=== PATIENT | female | born 1945 | race Caucasian/White ===

== ENCOUNTER 2020-05-29 11:31 | Outpatient (RCR) | payer MEDICARE, BC, SELFPAY ==
[2020-05-29] MEDS: COVID-19 VACC, MRNA(PFIZER)/PF 30 MCG/0.3 ML SYRINGE IM (07:40)
[2020-06-19] MEDS: COVID-19 VACC, MRNA(PFIZER)/PF 30 MCG/0.3 ML SYRINGE IM (07:02)
== END 2020-05-29 23:59 ==
LOC: IMMUN 11:31
PROVIDERS: Visit Provider Family Medicine
DX: Z23 Encounter for immunization (principal)
CPT/HCPCS: 0001A; 0002A

== ENCOUNTER 2023-02-11 07:47 | Emergency (ER) | payer MEDICARE, BC, SELFPAY ==
[2023-02-11 07:48] VITALS: BP 144/82; PULSE 59; RESP 18; TEMP 36.4; O2SAT 100
--- NOTE | 2023-02-11 08:07 | EDS_ITS ---
HPI History of Present Illness Chief Complaint: Back Narrative Narrative: 77-year-old female presents with worsening back pain over the last week. She states that remotely, 40 years ago, she blew a disc and required surgery. This was at the level of L5. She also in the past and had problems with cervical disc bulging, and went to physical therapy and states the disc went back in. Over the last week she complains of SI joint and low back pain that radiates to her right leg, to the front of her right thigh. Her primary care physician has prescribed her gabapentin and Tylenol 3 times a day. She denies any red flag signs for cauda equina, no saddle anesthesia, no loss of bowel or bladder, no fevers or chills. She has an appointment with orthopedics on Tuesday, 3 days from now, but presents because of the worsening pain. She describes more of a burning pain in her right hip and right thigh and pain in her low back. She relates history that 2 years ago when she was taking care of her , she was having sciatic pain but was able to get through it. She started having sciatic pain again about a week ago. [facility] Medical History (Updated 02/11/23 @ 09:33 by Zach Lopez MD) HTN (hypertension) Hyperlipidemia Home Medications atorvastatin 40 mg tablet 40 mg PO .hs 02/11/23 [History Last Taken Unknown] ergocalciferol (vitamin D2) 1,250 mcg (50,000 unit) capsule 50,000 unit PO .COMPLEX 02/11/23 [History Last Taken Unknown] gabapentin 100 mg capsule 100 mg PO TID PRN pain (scale score 4-6) 02/11/23 [History Last Taken Unknown] magnesium 250 mg tablet 250 mg PO DAILY 02/11/23 [History Last Taken Unknown] metoprolol succinate 25 mg tablet,extended release 24 hr 25 mg PO BID 02/11/23 [History Last Taken Unknown] ramipril 10 mg capsule 10 mg PO BID 02/11/23 [History Last Taken Unknown] Allergy/AdvReac Type Severity Reaction Status Date / Time No Known Allergies Allergy Verified 02/11/23 07:48 Surgical History (Updated 02/11/23 @ 08:53 by Amelia Rodriguez) H/O: hysterectomy Social History Smoking Status: Never smoker ROS ROS ED ROS Narrative Constitutional: No fever, no chills. HEENT: No sore throat. No neck pain. No loss of vision. No rhinorrhea. Cardiovascular: No chest pain. No palpitations. No pedal edema. Respiratory: No cough, no shortness of breath. Abdominal: No abdominal pain. No nausea. No vomiting. Genitourinary: No dysuria. No hematuria. Musculoskeletal: No myalgias. No arthralgias. Positive low back pain with radiation to right hip and thigh. Burning pain. Neurologic: No headaches. No dizziness. No lightheadedness. Skin: No rash. No change in color. Psychiatric: No depression. No anxiety. EXAM Physical Exam Narrative Exam Narrative: Afebrile. Vital signs noted. HEENT: Normocephalic. Atraumatic. PERRL, EOMI. Neck soft and supple. No point tenderness or step off. Cardiovascular: Regular rate and rhythm. No murmurs, rubs, or gallops appreciated. Respiratory: No tachypnea. Lungs clear to auscultation bilaterally. Gastrointestinal: Abdomen soft, nontender, with normoactive bowel sounds. No rebound or guarding. Neurological: Awake. Alert. Nonfocal, nonlateralizing. Skin: No rash. Normal color. No pallor. Musculoskeletal: No pedal edema. Full range of motion extremities. Able to flex and extend right knee and right hip without difficulty. Neurovascular intact distally. Straight leg raising negative bilaterally. Mild tenderness to palpation lumbar spine but no step-off. Minimal tenderness to palpation in right sciatic notch and diffusely through her right SI joint. Const Vital Signs: 02/11/23 07:48 Temperature 97.6 F L Temperature Source Temporal Pulse Rate 59 L Respiratory Rate 18 Blood Pressure 144/82 H Blood Pressure Mean 102 Pulse Ox 100 Oxygen Delivery Method Room Air MDM MDM MDM Narrative Medical decision making narrative: I had a lengthy discussion with the patient and her daughter. I do not feel emergent MRI is indicated. However, I do feel that CT imaging of the back/lumbar spine would be beneficial. In the differential diagnosis is degenerative joint disease of the spine, spinal stenosis, sacroiliitis, and sciatica with back pain. I have low suspicion for cauda equina based on her history and physical examination. We also discussed analgesia and she states that she has intolerance to morphine because 40 years ago they administered it to her and all my organs shut down. I offered her either oxycodone or hydrocodone but she states she has never taken that and would like to wait until after imaging studies are performed. I reviewed the CT report of her lumbar spine and there are multilevel degenerative changes along with central and bilateral neural foraminal stenosis at L3-L4 and L4-L5 levels. She does have posterior bulging disks. At this point in time, I feel she be discharged to follow-up with her orthopedic child welfare specialist on Tuesday. I discussed analgesia with her and she declined narcotics and would like to continue her gabapentin 100 mg 3 times daily and Tylenol as well as she just started these yesterday. She was told that she can titrate up her gabapentin after a week. She should follow-up with her primary care physician as well. I do not feel she requires admission at this time. Disposition is discharged home in stable condition. History & Record Review Discussion w/independent historian: Patient and Family Additional record(s) reviewed:: No prior records Radiography Diagnostic Testing: Clinical Impression(s) from Imaging Studies Lumbar Spine CT 02/11/23 08:30 IMPRESSION: Multilevel degenerative changes, as described above. Central and bilateral neural foraminal stenosis at the L3-L4 and L4-L5 levels. Electronically Signed: Drew Renee MD at 8:49 EST , Discharge Plan Triage Chief Complaint: Back ED Provider: Zach Lopez Dx/Rx/DC Orders Clinical Impression: Sciatica of right side, Spinal stenosis, Multilevel degenerative joint disease of spine Instructions: ED Back Pain (Acute or Chronic), ED Sciatica Prescriptions: No Action atorvastatin 40 mg tablet 40 mg PO .hs gabapentin 100 mg capsule 100 mg PO TID PRN (Reason: pain (scale score 4-6)) metoprolol succinate 25 mg tablet extended release 24 hr 25 mg PO BID ergocalciferol (vitamin D2) 1,250 mcg (50,000 unit) capsule 50,000 unit PO .COMPLEX Rx Instructions: 50,000 units orally twice a month; ramipril 10 mg capsule 10 mg PO BID Patient Comments: TAKE 1 CAPSULE BY MOUTH TWICE A DAY magnesium 250 mg tablet 250 mg PO DAILY Primary Care Provider: SHEY LLOYD MD Referrals: Dillon Richards, [Med Staff - Active Staff] - Keep Yanni appointment NOT,DEFINED [Non-Staff] - Activity Restrictions/Additional Instructions: Continue your gabapentin and Tylenol as directed. Follow up with your Orthopaedic Credit Clerk as scheduled on Tuesday. Disposition Disposition: Home, Self Care
--- NOTE | 2023-02-11 08:30 | CT_ITS ---
STUDY: CT LUMBAR SPINE WITHOUT CONTRAST REASON FOR EXAM: Female, 77 years old. Sciatica, pain RADIATION DOSAGE (If Supplied By Facility): CTDIvol = ( 18.27 ) mGy, DLP = ( 658.92 ) mGycm TECHNIQUE: The patient was scanned in a multi detector CT scanner. High resolution transaxial imaging was performed. Images were obtained from L1 to S1 vertebral level. Sagittal and coronal images were reconstructed. Individualized dose optimization techniques were used for this CT. COMPARISON: None FINDINGS: There is straightening of the normal lumbar lordosis. There is no substantial scoliosis. Normal vertebrae of the lumbar spine. L1-2: Normal endplates. Normal disc height and morphology. Normal bilateral facet joints. Normal central canal and bilateral lateral recesses. Normal bilateral intervertebral neural foramina. L2-3: Mild degree diffuse posterior disc bulge. No significant stenosis is seen. L3-4: Diffuse posterior disc bulge. Facet joint osteoarthritis and hypertrophy. Hypertrophy of the ligamenta flava. Mild degree of central canal stenosis and moderate degree of bilateral neural foraminal stenosis. L4-5: Diffuse posterior disc bulge. Hypertrophy of the facet joints with hypertrophy of the ligamenta flava causing a mild degree of central canal stenosis and moderate degree of bilateral neural foraminal stenosis. L5-S1: Marked degree of disc space narrowing. Atherosclerotic plaque formation of the abdominal aorta. CT/Spine Lumbar without Contrast IMPRESSION: Multilevel degenerative changes, as described above. Central and bilateral neural foraminal stenosis at the L3-L4 and L4-L5 levels. Electronically Signed: Drew Renee MD at 8:49 EST ,
== END 2023-02-11 10:00 | disposition home or self-care (01) ==
PROVIDERS: Emergency Provider Emergency Medicine; Visit Provider Emergency Medicine
DX: M48.00 Spinal stenosis, site unspecified (principal); I10 Essential (primary) hypertension; M54.31 Sciatica, right side; E78.5 Hyperlipidemia, unspecified; Z79.899 Other long term (current) drug therapy; Z90.710 Acquired absence of both cervix and uterus; M51.36 Other intervertebral disc degeneration, lumbar region
CPT/HCPCS: 72131; 99282

== ENCOUNTER → 2023-03-11 | Outpatient (CLI) | payer MEDICARE, BC, SELFPAY ==
--- NOTE | 2023-03-11 06:32 | MRI_ITS ---
STUDY: MRI LUMBAR SPINE WITH AND WITHOUT CONTRAST REASON FOR EXAM: Female, 78 years old. Low back pain and right leg pain. TECHNIQUE: Standardized fat and water weighted pulse sequences were obtained in the sagittal and axial planes. 15 mL of IV Clariscan was administered for the contrast portion of the examination. COMPARISON: CT lumbar spine without contrast 02/01/2023. FINDINGS: T10-T11: (Sagittal only). Normal endplates. Normal disc height, hydration and morphology. No ventral extradural defect. Normal central canal and the included portions of the bilateral intervertebral neural foramina. T11-T12 and T12-L1: (Sagittal only). Normal endplates. Normal disc height, hydration and morphology. No ventral extradural defects. Normal central canal and bilateral intervertebral neural foramina. Normal lumbar lordosis. There is no substantial scoliosis. Normal conus medullaris that terminates at the mid L1 vertebral body level. L1-2: Normal endplates. Normal disc height, hydration and morphology. Normal bilateral facet joints. Normal central canal and bilateral lateral recesses. Normal bilateral intervertebral neural foramina. L2-3: Normal endplates. Normal disc height, hydration and morphology. Normal bilateral facet joints. Normal central canal and bilateral lateral recesses. Normal bilateral intervertebral neural foramina. L3-4: Normal endplates. Mild disc space height narrowing. Minimal ventral extradural defect due to posterior bulging annulus. Mild bilateral degenerative facet arthropathy. Mild dorsal epidural lipomatosis. Moderate central canal stenosis with an AP canal diameter 7 mm. Normal bilateral lateral recesses. Prominent right posterior foraminal disc extrusion (series 6 and 8, images 18; series 2 and 3, images 11). This is causing posterior displacement of the right L3 nerve. Normal left intervertebral neural foramen. L4-5: Normal endplates. Normal disc height, hydration and morphology. Normal bilateral facet joints. Normal central canal and bilateral lateral recesses. Normal bilateral intervertebral neural foramina. L5-S1: Minimal Modic type II degenerative vertebral marrow fat infiltration underneath the peripheral aspect of the vertebral endplates. Pronounced disc space height narrowing. Mild bilateral degenerative facet arthropathy. Normal central canal and bilateral lateral recesses. Normal bilateral intervertebral neural foramina. Normal visualized sacral ala. Normal visualized paraspinous soft tissue structures. Following IV contrast administration, there are no abnormally enhancing lesions intradurally and extradurally. MRI/Spine Lumbar W/WO Contrast IMPRESSION: 1. Prominent right L3-L4 posterior foraminal disc extrusion causing posterior displacement of the right L3 nerve and moderate central canal stenosis with an AP canal diameter of 7 mm. 2. No abnormal enhancing lesions intradurally and extradurally. Electronically Signed: Zach Morales MD at 16:01 EST ,
[2023-03-11 07:01] LABS: CREATININE FINGERSTICK < 1.0 mg/dL (0.55-1.02); EGFR FINGERSTICK > 60.0000 mL/min (>60)
--- NOTE | 2023-04-13 14:40 | PCM.PN.HOSP ---
Reason for Visit Reason for Visit: Back Pain Subjective Subjective Mrs. Petty is a 78-year-old white female who was admitted to [facility] on 04/13/2023 after undergoing an elective far lateral laminectomy at L3 and L4 on the right. She evidently had been having significant problems with radicular pain and associated numbness and tingling that had caused her leg to become weak. She had previous back surgery 20 years prior. She was rating her pain a 10 out of 10 and was unable to sit or lie on her left side and her symptoms made it difficult for her to walk. She had been undergoing conservative management with gabapentin extra strength Tylenol and had been using both ice and heat but was not getting any significant pain relief. She had no change in her bowel or bladder function neurologically it is documented that she had increased pain with flexion of the lumbar spine and she had decreased right Achilles reflex compared to the left and Babinski's were downgoing bilaterally. X-rays revealed degenerative disc disease and a CT scan showed foraminal stenosis MRI was performed and showed prominent L3-L4 posterior foraminal disc extrusion causing posterior displacement of the right L3 nerve and moderate canal stenosis with an AP canal diameter of 7 mm. Given these findings and her ongoing symptoms she was taken to the OR for a far lateral laminectomy at L3 and L4 on the right. We have been consulted postoperatively for medical management. She has a past medical history of vitamin D deficiency, hypertension, and hyperlipidemia. I evaluated her postoperatively on the medical floor after coming up from PACU. Assessment & Plan Assessment/Plan PLAN: Plan Lumbar radiculopathy secondary to L3-L4 disc protrusion -Postop day 0 far lateral laminectomy at L3-4 -Pain management per primary service -Recommend bowel regimen -PT/OT per primary service Hypertension -Continue home metoprolol -Continue home ramipril Hyperlipidemia -Continue home statin Vitamin D deficiency -Restart ergocalciferol at discharge Chronic pain -Continue home medications for pain per primary service DVT prophylaxis -Per primary service Capacity Legal Director Of Cardiac Cath Lab Reflex Medical hold order details:: IF a medical hold is selected below, a suggested order for a MEDICAL HOLD will reflex upon signing the document. Next of kin: [place] law dictates a PRIORITY LIST for identifying legal decision-maker/legal next of kin in the following order (LNOK): 1st: The patient?s legal guardian, if any 2nd: The patient's spouse (if status is questionable, consult Risk Management) 3rd: The patient?s adult child(shoaib) (majority, if multiple children) 4th: The patient?s parents 5th: The patient?s adult siblings (majority, if multiple children siblings) Charges/Coding Visit Charges Inpatient E&M: 06326 Subs Hosp L2
== END | disposition home or self-care (01) ==
LOC: MRI 06:19
PROVIDERS: Referring Provider Orthopaedic Surgery; Visit Provider Orthopaedic Surgery
DX: M51.26 Other intervertebral disc displacement, lumbar region (principal)
CPT/HCPCS: 72158; A9575

== ENCOUNTER 2023-04-13 10:54 | Observation (INO) | payer MEDICARE, BC, SELFPAY ==
[2023-04-01 09:18] LABS: Absolute Lymphocyte Count 1.21 X10^3/uL (0.83-4.51); Absolute Neutrophil Count 5.4 X10^3/uL (2.0-7.7); Basophil# 0.07 X10^3/uL; Basophil% 0.9 % (0-1); Eosinophil# 0.31 X10^3/uL; Hematocrit 39.1 % (37-47); Hemoglobin 13.1 g/dL (12.0-15.0); Lymphocyte # 1.21 X10^3/ul (0.83-4.51); Lymphocyte % 15.7 % (19-41); Mean Corp Hgb Conc 33.5 g/dL (32-36); Mean Corpuscular Hgb 30.8 pg (27.0-32.0); Mean Platelet Vol. 9.9 fl (6.2-12.0); Monocyte# 0.67 X10^3/uL; Monocyte% 8.7 % (0-10); NRBC Flagged by Analyzer 0 % (0-5); Neutrophil % 70.3 % (47-70); Platelet Count 297 K/mm3 (150-450); RBC Distribution Width CV 12.1 % (11.6-14.6); RBC Distribution Width SD 40.4 fl (35.1-43.9); Red Blood Count 4.25 M/mm3 (4.2-5.4); White Blood Count 7.7 K/mm3 (4.4-11.0)
[2023-04-01 09:36] LABS: Anion Gap 4 (5-15); BUN 21 mg/dL (7-18); BUN/Creat Ratio 23.8 RATIO (10-20); Calcium,Total 9.4 mg/dL (8.5-10.1); Chloride 107 mmol/L (98-107); Creatinine, Serum 0.88 mg/dL (0.55-1.02); EST Glomerular Filtration Rate 66 mL/min (>60); Est Glom Filt Rate - Afr Amer 80 mL/min (>60); Glucose 140 mg/dL (74-106); Magnesium 2.2 mg/dL (1.6-2.6); Potassium 4.2 mmol/L (3.5-5.1); Sodium Level 138 mmol/L (136-145)
[2023-04-01 09:40] LABS: Hemoglobin A1c 6.7 % (3.8-5.6)
[2023-04-01 10:12] LABS: HIV - WCH Non-Reactive (Nonreactive); Hepatitis B Surface Antibody Non-Reactive; Hepatitis C Antibody Non-Reactive (Nonreactive)
[2023-04-02 07:44] LABS: Hepatitis A AB, Total Negative (Negative)
--- NOTE | 2023-04-12 15:30 | HP.PCM_ITS ---
History and Physical Add?Addendum [id number] Acct: [id number] Name: LO DEE Rep #: [id number] : 1945 Provider: Dr. Dillon Richards DO Age/Sex: 77/F [place] [facility] [facility] [place]: Signed Intake Vital Signs 02/11/2307:48 02/14/2314:06 Height 5 ft 2 in 5 ft 2 in Intake Visit Reasons: Lumbar spine injury Is patient in pain?: Yes Allergies No Known Allergies Allergy (Verified 02/14/23 14:08) Medications atorvastatin 40 mg tablet 40 mg PO .hs 02/11/23 [History Confirmed 02/14/23] ergocalciferol (vitamin D2) 1,250 mcg (50,000 unit) capsule 50,000 unit PO .COMPLEX 02/11/23 [History Confirmed 02/14/23] magnesium 250 mg tablet 250 mg PO DAILY 02/11/23 [History Confirmed 02/14/23] metoprolol succinate 25 mg tablet,extended release 24 hr 25 mg PO BID 02/11/23 [History Confirmed 02/14/23] ramipril 10 mg capsule 10 mg PO BID 02/11/23 [History Confirmed 02/14/23] coenzyme Q10 200 mg/gram oral powder (H2Q CoQ10) mg PO 02/14/23 [History Con firmed 02/14/23] gabapentin 100 mg capsule 100 mg PO TID 02/14/23 [History Confirmed 02/14/23] PFSH Medical History HTN (hypertension) Hyperlipidemia Surgical History (Updated 02/14/23 @ 14:11 by Yessica Magaña) H/O knee surgery H/O: hysterectomy Previous back surgery Social History Smoking Status: Never smoker HPI Lumbar Spine Injury/Condition This documentation accurately reflects the service provided and the decisions made by me, Dr. Dillon Richards DO 02/14/23 0956. Part of today?s visit was documented by Dulce PARIS, acting as scribe. LO DEE is a 77 year old F here today for sciatic back pain. Denies any specific injury. States that she has had the pain for about 2 weeks now. Her pain radiates down her right along with numbness and tingling which causes the leg to be weak. She has had a back surgery in the past that was about 20 years ago. She rates her pain a 10/10. States that she is unable to sit or lay on her left side and is difficult for her to walk. She is taking gabapentin and extra strength tylenol for the pain. She has used both ice and heat but the ice only helped slightly. She notes that her pain is constant. Mrs. Dee is a most pleasant young lady that presents in the company of her daughter Robin. Swift about 2 or little longer weeks ago out of the clear blue she began having pain in the the right side of the back that goes into the right buttocks and down the right thigh. It seems to be more in the anterior thigh as best I can tell. He is in obvious pain sitting down makes the pain wo rse standing up makes it a little better. When she stands she puts partial weight on her right leg and it does make her back feel somewhat better. She denies any bowel or bladder dysfunction. She denies history of explained weight loss night fever sweats or chills. On examination she does have good motor strength of all the major muscle groups of both lower extremities. She can stand on her toes and she can stand on her heels. She has more pain with flexion of the lumbar spine that she does extension. Her right Achilles reflex is decreased as compared to the left however this could be from her old surgery 20 years ago. Patellar reflexes are 3+ and equal bilaterally. She has no long tract signs. Clonus is absent Babinski's are downgoing. Plain x-rays of her lumbar spine demonstrate that she has marked degenerative disc disease at L5-S1 probably the level of the old surgery. I reviewed the CT scan that she had recently but this demonstrates mostly foraminal stenosis but not somewhat central stenosis. Again CT scans were not the best studies for lumbar spines. I am ordering an MRI scan of the lumbar spine with and without contrast. I will see her after the MRI scan and make further recommendations. Current symptoms: Reports stiffness, weakness, numbness and tingling Location of symptoms: left leg Character: constant Pain scale (0-10): 10 ROS Const Reports weakness Musc Reports numbness, Reports stiffness and Reports tingling Neuro Yes numbness, Yes tingling and Yes weakness Coding Level of Care Code Off vis,new,level 3 Diagnoses Injury of Lumbar Spine S34.109A Multilevel degenerative joint disease of spine M47.819 Spinal stenosis M48.00 Sciatica of right side M54.31
[2023-04-13] VITALS (18 sets, daily range): BP systolic 120–163; BP diastolic 43–86; PULSE 58–88; RESP 16–18; TEMP 36.3–37; O2SAT 95–100; BMI 30.2; BMI 30.1
--- OUTSIDE RECORDS SUMMARY | 2023-04-13 09:41 | XMS RPT_ITS | CCD ---
Author Name Unknown Address [address] [place] [address] Organization [facility] Care Team Providers Care Senior Living Sales Counselor Name Role Phone PREMA BABB, SHEY Porras Primary Care Physician PREMA BABB, SHEY Porras Attending Rogerio LLOYD MD, SHEY Porras Primary Care Rogerio LLOYD MD, SHEY Porras Attending Rogerio LLOYD MD, SHEY Porras Primary Care Rogerio LLOYD MD, SHEY Porras Attending Rogerio LLOYD MD, SHEY Porras Primary Care Rogerio boo Allergies Allergy Classification Reported Allergen(s) Allergy Type Date of Onset Reaction(s) Facility (5 sources) Morphine; Translations: [morphine] Drug Allergy ANAPHYLACTIC SHOCK [facility] Work Phone: Medications Current Medications Medication Drug Class(es) Dates Sig (Normalized) Sig (Original) pravastatin sodium 80 mg oral tablet (5 sources) HMG-CoA Reductase Inhibitor Start: 10-30-2007 take 1 dose by mouth once daily pravastatin Dose : 80 mg =, PO, Daily, 0 Refill(s), current med (Hx) Start Date: 10/30/07 Status: Ordered Problems Problem Classification Problem Date Documented Da te Episodic/Chronic Chronic kidney disease (1 source) Chronic kidney disease stage 3B ; Translations: [Chronic kidney disease, stage 3b] Chronic Diabetes mellitus without complication (1 source) Type 2 diabetes mellitus without complication; Translations: [Type 2 diabetes mellitus without complications] Chronic Hypertension with complications and secondary hypertension (1 source) Chronic kidney disease due to hypertension; Translations: [Hypertensive chronic kidney disease with stage 1 through stage 4 chronic kidney disease, or unspecified chronic kidney disease] Chronic Results Test Name Value Interpretation Reference Range Facil ity Encounters Encounter Date Encounter Type Care Provider Facility Start: 01-25-2023 End: 01-26-2023 ambulatory SHEY LLOYD MD Facility:B Start: 01-25-2023 End: 01-25-2023 Patient encounter procedure SHEY LLOYD MD [facility] Start: 07-13-2022 End: 07-14-2022 ambulatory SHEY LLOYD MD Facility:[facility] Start: 07-13-2022 End: 07-13-2022 Patient encounter procedure SHEY LLOYD MD [facility] Start: 03-02-2022 End: 03-03-2022 ambulatory SHEY LLOYD MD Facility:[facility] Start: 03-02-2022 End: 03-02-2022 Patient encounter procedure SHEY LLOYD MD [facility] Start: 09-01-2021 End: 09-01-2021 Patient encounter procedure SHEY LLOYD MD [facility] Start: 06-04-2021 End: 06-04-2021 Patient encounter procedure SHEY LLOYD MD [facility] Payers Date Payer Category Payer Medicare [id number] 2022 Unknown [id number] 1945 Unknown [id number] 1945 Unknown [id number] 1945 Unknown [id number] Social History Date Type Detail Facility [facility] Sex Assigned At [facility] Tobacco smoking status No Smoking Status Entered [facility] Evaluation + Plan note Note Date & Type Note Facility Evaluation + Plan note No data available for this section [facility] Hospital Discharge instructions Note Date & Type Note Facility Hospital Discharge instructions No data available for this section [facility] Progress note Note Date & Type Note Facility Progress note No data available for this section [facility] Summary Purpose Family History No Family History Records FoundNo Family History Records Found No data available for this section Advance Directives No Advanced Directives Records FoundNo Advanced Directives Records Found Additional Source Comments INFORMATION SOURCE (unrecogn ized section and content) DATE CREATED AUTHOR AUTHOR'S ORGANIZ ATION 01/26/2023 [facility] ([place]) Care Team (unrecognized sect ion and content) Personnel Name: SHEY LLOYD MD Address: [address] [place] [address]- Care Team Personnel Name: SHEY LLOYD MD Position: Physician Member Role: Primary Care Physician Address: Address: [address] [place] [address]- Care Team Related Persons Name: JOANNA DEE Address: Home [id number] [place] [address] [place] Care Team Personnel Name: SHEY LLOYD MD Position: Physician Member Role: Primary Care Physician Address: Address: [address] [place] [address] Care Team Related Persons Name: JOANNA DEE Address: Home [address] [place] [address] Care Team (unrecognized sect ion and content) Care Team Personnel Name: SHEY LLOYD MD Position: Physician Member Role: Primary Care Physician Address: Address: [address] [place] [address]- Care Team Related Persons Name: JOANNA DEE Address: Home [id number] [place] [id number] FOR RECORDS PERTAINING TO PATIENTS WHO ARE OR HAVE BEEN ENROLLED IN A CHEMICAL DEPENDENCY/SUBSTANCEABUSE PROGRAM, SOME INFORMATION MAY BE OMITTED. This clinical summary was aggregated from multiple sources. Caution should be exercised in using it in the provision of clinical care. This summary normalizes information from multiple sources, and as a consequence, information in this document may materially change the coding, format and clinical context of patient data. In addition, data may be omitted in some cases. CLINICAL DECISIONS SHOULD BE BASED ON THE PRIMARY CLINICAL RECORDS. [facility] [employer] provides no warranty or guarantee of the accuracy or completeness of information in this document.
[2023-04-13] MEDS: Lactated Ringers 1,000 ML 15 ML IV ×2 (09:44→14:00)
[2023-04-13] MEDS: Magnesium 1 GM over 15 mins IV (09:45)
[2023-04-13] MEDS: Acetaminophen 500 MG Tablet 1000 MG PO ×3 (09:45→23:31)
[2023-04-13 09:55] LABS: Bedside Glucose 185 mg/dL (74-106)
[2023-04-13] MEDS: Insulin Lispro 100 UNIT/ML INSULN.PEN SC (10:33)
--- NOTE | 2023-04-13 11:35 | DISC_PTH ---
PATHOLOGY RESULTS PATIENT: LO DEE LOC: MS3 U#:[id number] AGE/SX: 78/F ROOM: AK313 RE04/13/[address]: Dr. Dillon Richards DO : 1945 BED: 1 DIS: 04/14/2023 SPEC #: [id number] RECD: 04/14/23 08:08 STATUS: DENISE ALEXANDRA #: [id number] EDGARDO: 04/13/23 11:[address]: Dillon Richards DEPT: SURGICAL PATHOLOGY RECD BY: Janis Hall ENTERED: 04/14/23 08:09 SP TYPE: DISC OTHR DR: Dr. Yuliana Kruger MD Tissues: Intervertebral disc, NOS Procedures: Surgery Specimen Level III HEADER OPERATION: ERAS, far lateral laminectomy, discectomy L3-L4 right PRE-OP DIAGNOSIS: Injury of lumbar spine, multilevel degenerative joint disease, spinal stenosis TISSUE SUBMITTED: Lumbar disc MICROSCOPIC DIAGNOSIS Disc L3-L4, laminectomy: Fragments of fibrocartilaginous tissue with reactive and degenerative changes. NAYANA:jorge a 04/15/2023 MICROSCOPIC DESCRIPTION Slides are reviewed. GROSS DESCRIPTION Received in fixative is one container labeled with the patient's name and designated lumbar disc. The specimen consists of multiple irregular fragments of hendrix, indurated tissue that in aggregate measure 2.5 x 2.5 x 0.4 cm. The specimen is totally submitted in one cassette. / NAYANA:jorge a 04/14/2023 TC:5 CPT: 53169
[2023-04-13] MEDS: Cefazolin 2 GM in 0.9% Normal Saline (100mL Bag) 100 ML IV (11:45)
[2023-04-13] MEDS: THROMBIN (RECOMBINANT) 20,000 UNIT VIAL 20000 UNIT TOPICAL (12:20)
--- NOTE | 2023-04-13 12:35 | RAD_ITS ---
HISTORY: FAR LATERAL LAMINECTOMY, DISCECTOMY L3-4, RIGHT....surgeon has requested a confirmation of the pointer is at L3-L4. TECHNIQUE: XR Spine Lumbar 1 View. COMPARISON: 02/14/2023. FINDINGS: VERTEBRAE: Vertebral body heights preserved. Degenerative changes of the posterior elements. ALIGNMENT: Unchanged 3 mm anterolisthesis of L4-5. INTERVERTEBRAL DISCS: Degenerative endplate changes with intervertebral disc space narrowing of L5-S1. SOFT TISSUES: Posterior surgical instrument at the L3-4 intervertebral disc level. RAD/Spine 1 View Any Level IMPRESSION: Surgical instrument at the L3-4 level. Electronically Signed: Dinora Canales MD at 12:51 EST ,
--- NOTE | 2023-04-13 13:49 | PCM.OPRPT ---
Report of Operation Description of Surgical Findings:: Preoperative diagnosis: Far lateral herniation L3-4 on the right with severe right L3 radiculopathy Postoperative diagnosis: Same Procedure: Far lateral laminectomy L3-4 on the right side Surgeon: Dr. Richards Lens Inspector: Babar from surgery [facility] Anesthesia: General endotracheal by [facility] EBL 20 cc Drains none Complications: None Procedure: Patient was taken to the OR where she was placed under general endotracheal anesthesia a Palafox catheter was inserted. Neuromonitoring placed her leads on the patient. She was then placed in prone position on the Josse frame. After appropriate positioning with care to protect her bony prominences her breasts her facial features her ulnar nerves of both elbows and the brachial plexus on both sides the back was prepped and draped standard fashion. I then made a small longitudinal incision centered over the area of L3-4. Subcutaneous tissues were incised the length of skin incision over the lumbar fascia just to the right of the spinous processes found and interspace and put a marker in place and took an x-ray. The x-ray demonstrated L4-5. We simply moved up 1 level and took another x-ray and confirmed L3-4 which was also confirmed by the radiologist. Once I elevated the paravertebral muscles all the way out over the facet and the pars Kailey retractor was then put in place. I then used an osteotome to start the laminotomy on the right side. Following this I then used the 45 degree Kerrison rongeurs to perform the actual laminotomy. I did have to include the very bottom of the pars. Once the laminotomy was large enough I then identified the ligamentum flavum. I remove the ligamentum flavum with a 45 degree Kerrison rongeurs. Once it was removed I could identify the L3 nerve root it was swollen and red as expected. In its axilla of the herniated disc was found as expected. Note that it was still contained within some annulus so I had to cut into it while holding the nerve over. Nucleus was then removed especially 1 large piece from this area as was the annulus itself. This completely decompressed the L3 nerve root I checked it above and below in its foramen and above and it was completely open on both the anterior and posterior portion of the nerve. Thorough irrigation was carried out repeatedly in the course of the case. Bleeding was easily controlled with thrombin-soaked Gelfoam until we had excellent hemostasis. I put an amniotic membrane directly over the nerve to prevent adhesions in the future. Gelfoam was placed over the top of that. I then closed the lumbar fascia using [id number] suture followed by closure of subcutaneous tissues with 2-0 Vicryl in interrupted fashion and finally this skin was approximated using skin clips. Sterile dressings were then applied. The patient was then recovered in the OR she was moved to her hospital bed and taken to recovery in satisfactory condition. This the end of operative summary on Megan Petty. This is Dr. Richards dictating.
[2023-04-13 14:29] LABS: Bedside Glucose 109 mg/dL (74-106)
--- OUTSIDE RECORDS SUMMARY | 2023-04-13 17:30 | XMS RPT_ITS | CCD ---
Author Name Unknown Address [address] [place] [address] Organization [facility] Care Team Providers Care Tax Compliance Representative Name Role Phone PREMA BABB, SHEY Porras [...] Morphine; Translations: [morphine] Drug Allergy ANAPHYLACTIC SHOCK [facility] Work Phone: Medications Current Medications Medication Drug [...] Facility Start: 01-25-2023 End: 01-26-2023 ambulatory SHEY LLODY MD Facility:B Start: 01-25-2023 End: 01-25-2023 Patient encounter procedure SHEY LLOYD MD [facility] Start: 07-13-2022 End: 07-14-2022 ambulatory SHEY LLOYD MD Facility:[facility] Start: 07-13-2022 End: 07-13-2022 Patient encounter procedure SHEY LLOYD MD [facility] Start: 03-02-2022 End: 03-03-2022 ambulatory SHEY LLOYD MD Facility:[facility] Start: 03-02-2022 End: 03-02-2022 Patient encounter procedure SHEY LLOYD MD [facility] Start: 09-01-2021 End: 09-01-2021 Patient encounter procedure SHEY LLOYD MD [facility] Start: 06-04-2021 End: 06-04-2021 Patient encounter procedure SHEY LLOYD MD [facility] Payers Date Payer Category Payer Medicare [id number] 2022 Unknown [id number] 1945 Unknown [id number] 1945 Unknown [id number] 1945 Unknown [id number] Social History Date Type Detail Facility [facility] Sex Assigned At [facility] Tobacco smoking status No Smoking Status Entered [facility] Evaluation + Plan note Note Date & Type Note Facility Evaluation + Plan note No data available for this section [facility] Hospital Discharge instructions Note Date & Type Note Facility Hospital Discharge instructions No data available for this section [facility] Progress note Note Date & Type Note Facility Progress note No data available for this section [facility] Summary Purpose Family History No Family History Records FoundNo Family History Records Found No data available for this section Advance Directives No Advanced Directives Records FoundNo Advanced Directives Records Found Additional Source Comments INFORMATION SOURCE (unrecogn ized section and content) DATE CREATED AUTHOR AUTHOR'S ORGANIZ ATION 01/26/2023 [facility] ([place]) Care Team (unrecognized sect ion and content) Personnel Name: SHEY LLOYD MD Address: [address] [place] [address]- Care Team Personnel Name: SHEY LLOYD MD Position: Physician Member Role: Primary Care Physician Address: Address: [address] [place] [address]- Care Team Related Persons Name: JOANNA DEE Address: Home [id number] [place] [address] [place] Care Team Personnel Name: SHEY LLOYD MD Position: Physician Member Role: Primary Care Physician Address: Address: [address] [place] [address] Care Team Related Persons Name: JOANNA DEE Address: Home [address] [place] [address] Care Team (unrecognized sect ion and content) Care Team Personnel Name: SHEY LLOYD MD Position: Physician Member Role: Primary Care Physician Address: Address: [address] [place] [address]- Care Team Related Persons Name: JOANNA DEE Address: Home [id number] [place] [id number] FOR RECORDS PERTAINING TO PATIENTS WHO ARE [...] BE BASED ON THE PRIMARY CLINICAL RECORDS. [facility] [employer] provides no warranty or guarantee of the accuracy or completeness of information in this document.
--- NOTE | 2023-04-13 18:18 | PCM.PN.HOSP ---
Reason for Visit Reason for Visit: Lumbar radiculopathy Subjective Subjective Mrs. Petty is a 78-year-old white female who was admitted to [facility] on 04/13/2023 after undergoing an elective far lateral laminectomy at L3 and L4 on the right. She evidently had been having significant problems with radicular pain and associated numbness and tingling that had caused her leg to become weak. She had previous back surgery 20 years prior. She was rating her pain a 10 out of 10 and was unable to sit or lie on her left side and her symptoms made it difficult for her to walk. She had been undergoing conservative management with gabapentin extra strength Tylenol and had been using both ice and heat but was not getting any significant pain relief. She had no change in her bowel or bladder function neurologically it is documented that she had increased pain with flexion of the lumbar spine and she had decreased right Achilles reflex compared to the left and Babinski's were downgoing bilaterally. X-rays revealed degenerative disc disease and a CT scan showed foraminal stenosis MRI was performed and showed prominent L3-L4 posterior foraminal disc extrusion causing posterior displacement of the right L3 nerve and moderate canal stenosis with an AP canal diameter of 7 mm. Given these findings and her ongoing symptoms she was taken to the OR for a far lateral laminectomy at L3 and L4 on the right. We have been consulted postoperatively for medical management. She has a past medical history of vitamin D deficiency, hypertension, and hyperlipidemia. I evaluated her postoperatively on the medical floor after coming up from PACU. Patient denies any significant discomfort, nausea, or vomiting at this time. Has no significant complaints at this time. States that the plan is for her to go home tomorrow as long as she is doing well. Objective Data Objective Data Vital Signs: Vital Signs Temp Pulse Resp BP Pulse Ox O2 Del Method O2 Flow Rate 97.8 F 76 16 132/86 H 95 Room Air 4 04/13/23 17:04/13/23 17:27 04/13/23 17:04/13/23 17:04/13/23 17:27 04/13/23 17:04/13/23 15:45 Oxygen Flow Rate (L/min) 4 Oxygen Delivery Method Room Air Weight: 74.843 kg Body Mass Index (BMI) 30.2 Intake & Output: Intake and Output for Last 24 Hours 04/11/23 04/12/23 04/13/23 23:59 23:59 23:59 Intake Total 1212 / 1212 Output Total 490 / 490 Balance 722 / 722 Lab / Micro Data 04/01/23 08:29 04/01/23 08:29 Labs: Laboratory Results - last 24 hr 04/13/23 09:31: POC Glucose 185 H 04/13/23 14:09: POC Glucose 109 H Micro: Microbiology 04/01/23 08:29 Swab (Method) Nasal Screen MRSA/MSSA - Final Radiography Diagnostic Testing: Radiology Impression Spine X-Ray 04/13/23 12:35 IMPRESSION: Surgical instrument at the L3-4 level. Electronically Signed: Dinora Canales MD at 12:51 EST , Physical Exam Const alert, oriented x3, no apparent distress, healthy appearing and well nourished; Negative for average body habitus Constitutional Narrative: Obese, older, white female, lying in bed, nursing bedside, patient appears comfortable and nontoxic, watching television HEENT head/scalp atraumatic and moist oral mucous membranes HEENT Narrative: Mallampati 3, no thrush Head and Scalp: normocephalic Resp normal respiratory effort, no retractions, no use of accessory muscles and clear to auscultation bilaterally Auscultation: Negative for rales, rhonchi or wheezes Cardio regular rate, regular rhythm, S1 normal heart sound, S2 normal heart sound, no rub, no gallops, no clicks and no JVD; Negative for no murmurs Cardio Narrative: 2 out of 6 systolic murmur loudest at right upper sternal border GI normal to inspection, nondistended, normoactive bowel sounds, soft to palpation and non-tender Extremity no clubbing, cyanosis or edema Extremity Narrative: Pedal pulses are 2+ Neuro oriented x3, moves all extremities and no focal motor deficits Speech: speech normal Psych affect normal Psych Narrative: Very pleasant, interacts appropriately, mood is stable Assessment & Plan Assessment/Plan (1) Herniated nucleus pulposus, L3-4 right: PLAN: Plan Plan Lumbar radiculopathy secondary to L3-L4 disc protrusion -Postop day 0 far lateral laminectomy at L3-4 -Pain management per primary service -Recommend bowel regimen -PT/OT per primary service Hypertension -Continue home metoprolol -Continue home ramipril Hyperlipidemia -Continue home statin Vitamin D deficiency -Restart ergocalciferol at discharge Chronic pain -Continue home medications for pain per primary service DVT prophylaxis -Per primary service Capacity Legal Superintendent [employer] Reflex Medical hold order details:: IF a medical hold is selected below, a suggested order for a MEDICAL HOLD will reflex upon signing the document. Next of kin: [place] law dictates a PRIORITY LIST for identifying legal decision-maker/legal next of kin in the following order (LNOK): 1st: The patient?s legal guardian, if any 2nd: The patient's spouse (if status is questionable, consult Risk Management) 3rd: The patient?s adult child(shoaib) (majority, if multiple children) 4th: The patient?s parents 5th: The patient?s adult siblings (majority, if multiple children siblings) Charges/Coding Visit Charges Inpatient E&M: 77835 Subs Hosp L2
[2023-04-13] MEDS: Gabapentin 100 MG Capsule 200 MG PO ×2 (19:00→23:32)
[2023-04-13] MEDS: Cefazolin 1 GM/50 ML BAG IV (19:53)
[2023-04-13] MEDS: Lactated Ringers 1,000 ML 100 ML IV (19:53)
[2023-04-13] MEDS: Metoprolol(XL)Succ 25 MG Tablet PO (22:03)
[2023-04-13] MEDS: Atorvastatin Calcium 40 MG Tablet PO (22:03)
[2023-04-13] MEDS: traMADol 50 MG Tablet PO (22:03)
[2023-04-13] MEDS: Ramipril 10 MG Capsule PO (22:33)
[2023-04-14 02:08] VITALS: BP 119/52; PULSE 73; RESP 16; TEMP 36.8; O2SAT 98
[2023-04-14] MEDS: Acetaminophen 500 MG Tablet 1000 MG PO ×2 (05:12→13:20)
[2023-04-14] MEDS: Gabapentin 100 MG Capsule 200 MG PO ×2 (05:13→13:20)
[2023-04-14] MEDS: Cefazolin 1 GM/50 ML BAG IV (05:13)
[2023-04-14 06:08] VITALS: BP 125/45; PULSE 70; RESP 16; TEMP 36.8; O2SAT 99
[2023-04-14 08:32] VITALS: O2SAT 96
[2023-04-14 09:41] VITALS: PULSE 66
[2023-04-14] MEDS: Ramipril 10 MG Capsule PO (09:41)
[2023-04-14] MEDS: Metoprolol(XL)Succ 25 MG Tablet PO (09:41)
--- NOTE | 2023-04-14 10:27 | CASEMGMT ---
NAMRATA JOYA Assessment: Face to Face with pt for initial transition planning/care coordination assessment. RN MAHNAZ introduced self and role at [facility], pt voices understanding and consents to assessment. Pt is A&O x4 and answers all questions appropriately at this time. Pt sitting up in chair in no distress. Care providers, pharmacy, and demographics verified/updated. Admitting Dx:lateral laminectomy, discectomy PCP:Matilde Specialists:nichol Richards Pharmacy[facility] Pres[facility] Benefit: yes LNOK:Bel Rao, dtr; Ivonne Rao, granddtr Living Arrangements: Pt lives typically alone, but grandson was in the service and has recently been staying the nights at her home. Pt reports she was I in ADL's prior to this hospitalization. She reports good family support with her dtr as her next door neighbor. Pt denies concerns at home, states her home was built to be functional for her and her late 's health. Transportation: Pt drives self and denies concerns with transportation. Pt dtr will transport pt until she is able to again. DME:cane, shower chair, [facility] HHC/SNF:Denies hx of Pt states no concerns with going home at time of dc. Pt states no further concerns/needs. CM to follow. Advised pt to ask CM if any further question/concerns/needs arise, voices understanding. Pt Goal:Home Plan:Home
[2023-04-14 10:30] VITALS: BP 140/57; PULSE 66; RESP 18; TEMP 36.3; O2SAT 100
--- NOTE | 2023-04-14 11:46 | CASEMGMT ---
Met with?patient to complete MENESES form. MENESES form explained to patient who voiced understanding and signed form. Original form placed in pt?s chart and copy provided to?patient. Leann Gil, Discharge Planning Asst
--- NOTE | 2023-04-14 13:04 | DCINST_ITS ---
Discharge Instructions Activity May shower in (days): 4 Lifting Restrictions: 15# Dressing / Incision Remove Dressing in: 3 days Follow Up Care Test Results: Test results from this visit will be discussed in further detail at your follow- up appointment, if applicable. Discharge Plan Admission Admit Date/Time: 04/13/23 10:54 Primary Reason for Your Visit: back surgery Attending Provider: Dillon Richards Primary Care Provider: shelia sherman Consulting Providers: Yuliana Kruger Discharge Orders/Prescriptions Prescriptions: No Action H2Q CoQ10 200 mg/gram powder 200 mg PO DAILY gabapentin 100 mg capsule 200 mg PO TID oxycodone-acetaminophen 7.5-325 mg tablet 1 tab PO Q6H PRN (Reason: pain) atorvastatin 40 mg tablet 40 mg PO .hs metoprolol succinate 25 mg tablet extended release 24 hr 25 mg PO BID ergocalciferol (vitamin D2) 1,250 mcg (50,000 unit) capsule 50,000 unit PO .COMPLEX Rx Instructions: ONCE EVERY 10 DAYS ramipril 10 mg capsule 10 mg PO BID Patient Comments: TAKE 1 CAPSULE BY MOUTH TWICE A DAY magnesium 250 mg tablet 250 mg PO DAILY Other Ambulatory Orders: 12 Lead EKG (Routine) Timeframe: 20230401 Location: None Selected Ordered By: Dr. Dillon Richards Referrals / Follow Up: Dillon Richards DO [Med Staff - Active Staff] - Disposition Disposition (needs filled in before D/C Order can be placed): Home, Self Care
--- NOTE | 2023-04-14 13:06 | PCM.DC.SUM ---
Providers Date of Admission: 04/13/23 Primary Care Physician: shelia sherman Attending Physician: This is discharge summary on Megan Petty. This patient was admitted yesterday morning and underwent lumbar laminectomy at L3-4. She tolerated the procedure well. She is doing well today. Her dressing is dry. Neurologically she is intact. Ambulating quite well with her walker. She is only taken Tylenol for pain. She tells me that she is ready to go home. I gave her directions regarding her care at home. He already has an appointment to see me in a couple of weeks. She knows how to get ahold of me in the event that she needs me before her visit with me. I answered all her questions. This is the end of discharge summary on Megan Petty. This is Dr. Richards dictating. Consultations 04/13/23 17:27 Consult: Hospitalist Routine Consulting Provider: Annetta Lema Reason for Consult: Medical Management EMERGENT Consult: No MD Notified: Yes Date Notified: 04/13/23 Time Notified: 17:00 Method of Notification: phone Reason For Visit: ERAS Far lateral laminectomy, disce Diagnosis Discharge Diagnosis (1) Herniated nucleus pulposus, L3-4 right: Status: Acute Code(s): M51.26 - Other intervertebral disc displacement, lumbar region Medications at Discharge Home Medications atorvastatin 40 mg tablet 40 mg PO .hs 02/11/23 ergocalciferol (vitamin D2) 1,250 mcg (50,000 unit) capsule 50,000 unit PO .COMPLEX 02/11/23 magnesium 250 mg tablet 250 mg PO DAILY 02/11/23 metoprolol succinate 25 mg tablet,extended release 24 hr 25 mg PO BID 02/11/23 ramipril 10 mg capsule 10 mg PO BID 02/11/23 coenzyme Q10 200 mg/gram oral powder (H2Q CoQ10) 200 mg PO DAILY 03/16/23 gabapentin 100 mg capsule 200 mg PO TID 03/16/23 oxycodone-acetaminophen 7.5 mg-325 mg tablet 1 tab PO Q6H PRN pain 03/16/23 Weight / BMI Weight Weight: 164 lb 14.492 oz Body Mass Index (BMI) 30.1 ABG / Lab / Microbiology Data 04/01/23 08:29 04/01/23 08:29 Laboratory: Laboratory Results - last 24 hr 04/13/23 14:09: POC Glucose 109 H Microbiology: Microbiology 04/01/23 08:29 Swab (Method) Nasal Screen MRSA/MSSA - Final D/C Instructions May shower in (days): 4 Meaningful Use Info Meaningful Use Diagnoses (Choose all that apply): None applicable Discharge Plan Admission Admit Date/Time: 04/13/23 10:54 Primary Reason for Your Visit: back surgery Attending Provider: Dillon Richards Primary Care Provider: shelia sherman Consulting Providers: Yuliana Kruger Discharge Orders/Prescriptions Prescriptions: No Action H2Q CoQ10 200 mg/gram powder 200 mg PO DAILY gabapentin 100 mg capsule 200 mg PO TID oxycodone-acetaminophen 7.5-325 mg tablet 1 tab PO Q6H PRN (Reason: pain) atorvastatin 40 mg tablet 40 mg PO .hs metoprolol succinate 25 mg tablet extended release 24 hr 25 mg PO BID ergocalciferol (vitamin D2) 1,250 mcg (50,000 unit) capsule 50,000 unit PO .COMPLEX Rx Instructions: ONCE EVERY 10 DAYS ramipril 10 mg capsule 10 mg PO BID Patient Comments: TAKE 1 CAPSULE BY MOUTH TWICE A DAY magnesium 250 mg tablet 250 mg PO DAILY Other Ambulatory Orders: 12 Lead EKG (Routine) Timeframe: 20230401 Location: None Selected Ordered By: Dr. Dillon Richards Referrals / Follow Up: Dillon Richards DO [Med Staff - Active Staff] - Disposition Disposition (needs filled in before D/C Order can be placed): Home, Self Care
== END 2023-04-14 14:19 | disposition home or self-care (01) ==
LOC: SDC 17:09 → MS3 17:09
PROVIDERS: Anesthesiology; Admitting Provider Orthopaedic Surgery; Referring Provider Orthopaedic Surgery; Visit Provider Orthopaedic Surgery
PROC: (CPT 63030; principal; 2023-04-13 11:05)
DX: M51.16 Intervertebral disc disorders with radiculopathy, lumbar region (principal); E11.9 Type 2 diabetes mellitus without complications; I10 Essential (primary) hypertension; E78.00 Pure hypercholesterolemia, unspecified; Z79.899 Other long term (current) drug therapy; K76.0 Fatty (change of) liver, not elsewhere classified; E55.9 Vitamin D deficiency, unspecified; G89.29 Other chronic pain
CPT/HCPCS: 63030; 36415; 72020; 80048; 82962; 83036; 83735; 85025; 86703; 86706; 86708; 86803; 87081; 88304; 93005; 94668; 96361; 96365; 96366; 97161; 99221; J7120; G0378; J2405; J3475

== ENCOUNTER 2023-06-18 11:17 | Emergency (ER) | payer MEDICARE, BC, SELFPAY ==
[2023-06-18 11:17] VITALS: BP 123/90; PULSE 75; RESP 14; TEMP 36.2; O2SAT 100; BMI 31.2
[2023-06-18 11:19] VITALS: BP 123/90; PULSE 74; RESP 14; O2SAT 100
--- NOTE | 2023-06-18 11:38 | EX.ED.UPPERE ---
HPI <SAMANTHA Tidwell - Last Filed: 06/18/23 12:40> History of Present Illness Chief Complaint: Upper Extremity Injury Narrative Narrative: This morning the patient lifted a 20 pound baby and felt a strain in her neck and then pain in the left neck and left posterior shoulder that radiates down the entire arm and to her fingers. All of her fingers feel tingly. She denies fall or direct trauma. She states years ago she had a cervical disc bulge with similar symptoms which improved with physical therapy. Once symptoms started she took Tylenol and oxycodone she had on hand from previous surgery. [facility] <SAMANTHA Tidwell - Last Filed: 06/18/23 12:40> [facility] Medical History (Updated 06/18/23 @ 11:59 by SAMANTHA Tidwell) Arthritis Diabetes Fatty liver High cholesterol HTN (hypertension) Hyperlipidemia Leg cramps Non-smoker Walker as ambulation aid Wears glasses Home Medications atorvastatin 40 mg tablet 40 mg PO .hs 02/11/23 [History Last Taken 04/12/23 21:00] ergocalciferol (vitamin D2) 1,250 mcg (50,000 unit) capsule 50,000 unit PO .COMPLEX 02/11/23 [History Last Taken 04/10/23] magnesium 250 mg tablet 250 mg PO DAILY 02/11/23 [History Last Taken 04/12/23 21:00] metoprolol succinate 25 mg tablet,extended release 24 hr 25 mg PO BID 02/11/23 [History Last Taken 04/13/23 06:00] ramipril 10 mg capsule 10 mg PO BID 02/11/23 [History Last Taken 04/13/23 06:00] coenzyme Q10 200 mg/gram oral powder (H2Q CoQ10) 200 mg PO DAILY 03/16/23 [History Last Taken 04/12/23 21:00] lidocaine 5 % topical patch (Lidoderm) 1 patch topical DAILY #15 ea 06/18/23 [Rx Last Taken Unknown] Allergy/AdvReac Type Severity Reaction Status Date / Time morphine Allergy Unknown PT UNSURE Verified 06/18/23 11:19 OF REACTION Surgical History (Updated 06/18/23 @ 11:53 by Rut French) H/O knee surgery H/O Spinal surgery H/O: hysterectomy Previous back surgery Social History Smoking Status: Never smoker ROS <SAMANTHA Tidwell - Last Filed: 06/18/23 12:40> ROS ED ROS Narrative Neuro: Negative for motor/sensory dysfunction. Musc: Negative for joint pain, swelling, trauma. EXAM <SAMANTHA Tidwell - Last Filed: 06/18/23 12:40> Physical Exam Narrative Exam Narrative: CONST: Patient sitting in no acute distress. EYES: Normal inspection. NECK: Normal inspection. Tender to palpation over left posterior neck and trapezius, no midline tenderness. RESP: No respiratory distress, CTAB. CVS: Regular rate and rhythm, no murmur, no gallop. SKIN: Color normal, no rash, warm, dry, intact. EXTREMITIES: Normal appearance upper extremities with full range of motion, 5/5 strength in shoulder abduction, elbow and wrist flexion/extension and sprinkler fitter strength. Normal motor and sensory function in median radial and ulnar distributions. 2+ radial pulses. NEURO: Oriented and answering questions appropriately. PSYCH: Normal affect. Const Vital Signs: 06/18/23 11:17 06/18/23 11:19 Temperature 97.2 F L Temperature Source Temporal Pulse Rate 75 74 Respiratory Rate 14 14 Blood Pressure 123/90 H 123/90 H Blood Pressure Mean 101 101 Pulse Ox 100 100 Oxygen Delivery Method Room Air [facility] <SAMANTHA Tidwell - Last Filed: 06/18/23 12:40> [facility] Narrative Medical decision making narrative: Patient lifted a 20 lb baby and felt left-sided neck and left arm pain. She is tender left trapezius consistent with musculoskeletal pains. She had no direct trauma and is neurovascularly intact so there is no indication for imaging. I suspect a strain. She does not have symptoms in a clear radicular pattern. She was treated with IM Toradol and Lidoderm patches and prescribed the patches for home. I recommended alternating Tylenol and Motrin. She was discharged in stable condition. <Dr. Lane Christianson DO - Last Filed: 06/18/23 13:05> [facility] Narrative Medical decision making narrative: Patient lifted a 20 lb baby and felt left-sided neck and left arm pain. She is tender left trapezius consistent with musculoskeletal pains. She had no direct trauma and is neurovascularly intact so there is no indication for imaging. I suspect a strain. She does not have symptoms in a clear radicular pattern. She was treated with IM Toradol and Lidoderm patches and prescribed the patches for home. I recommended alternating Tylenol and Motrin. She was discharged in stable condition. This patient was seen with a PA/[employer] Individually assessed they patient including history and physical. I have reviewed everything on the chart that is available and agree with the documentation provided by the PA/[employer] including discussion about the assessment, treatment plan, discussion, and return precautions. Patient presenting with left-sided trapezius pain. This occurred after lifting a 20 pound baby. No midline spinal tenderness, deformity, step-off. No imaging. Patient given Toradol and Lidoderm patches. Recommended follow-up with orthopedic spine as she is seen. Return precautions discussed. Impression: 1. Cervical strain Discharge Plan Triage Chief Complaint: Upper Extremity Injury ED Midlevel Provider: Genevieve Wallace ED Provider: Lane Christianson Dx/Rx/DC Orders Clinical Impression: Acute cervical myofascial strain Instructions: ED Neck Sprain or Strain Prescriptions: New lidocaine [Lidoderm] 5 % adhesive patch,medicated 1 patch topical DAILY Qty: 15 0RF Rx Instructions: leave on most painful area for up to 12 hrs No Action H2Q CoQ10 200 mg/gram powder 200 mg PO DAILY atorvastatin 40 mg tablet 40 mg PO .hs metoprolol succinate 25 mg tablet extended release 24 hr 25 mg PO BID ergocalciferol (vitamin D2) 1,250 mcg (50,000 unit) capsule 50,000 unit PO .COMPLEX Rx Instructions: ONCE EVERY 10 DAYS ramipril 10 mg capsule 10 mg PO BID Patient Comments: TAKE 1 CAPSULE BY MOUTH TWICE A DAY magnesium 250 mg tablet 250 mg PO DAILY Primary Care Provider: SHEY LLOYD Referrals: SHEY LLOYD [Other] Activity Restrictions/Additional Instructions: You can take Tylenol every 6 hours and use [id number] lidocaine patches or ice. Follow-up with your primary care doctor or Dr. Richards. Disposition Disposition: Home, Self Care
[2023-06-18] MEDS: Lidocaine 5% Patch 1 PATCH TOPICAL (12:00)
[2023-06-18] MEDS: Ketorolac 15 MG/ML Vial IM (12:00)
[2023-06-18 13:03] VITALS: BP 183/64; PULSE 78; RESP 14; TEMP 36.7; O2SAT 99
--- NOTE | 2023-06-18 13:04 | ED.RN ---
PT WITH ELEVATED BP ON DISCHARGE. PT REPORTS HX OF HTN AND STATES THAT SHE HAS NOT HAD HER MEDICATION THIS MORNING. DR. PIRES INFORMED. PT ADVISED PER MD TO TAKE HER BP MEDICATION UPON HER RETURN HOME. CLEARED FOR D/C.
== END 2023-06-18 13:05 | disposition home or self-care (01) ==
PROVIDERS: Emergency Provider Student in an Organized Health Care Education/Training Program; Visit Provider Student in an Organized Health Care Education/Training Program
DX: S16.1XXA Strain of muscle, fascia and tendon at neck level, initial encounter (principal); E11.9 Type 2 diabetes mellitus without complications; M25.512 Pain in left shoulder; X50.0XXA Overexertion from strenuous movement or load, initial encounter; Z90.710 Acquired absence of both cervix and uterus; E78.5 Hyperlipidemia, unspecified; I10 Essential (primary) hypertension
CPT/HCPCS: 96372; 99282